=== PATIENT | male | born 1985 | race Caucasian/White ===

== ENCOUNTER 2017-09-10 15:13 | Emergency (ER) | payer SELFPAY ==
[2017-09-10] MEDS ORDERED: TORAdol 30 mg Injection IV ONE (16:17)
[2017-09-10] MEDS ORDERED: ROCEPHIN 1 Gm-D5w 50 ml Bag** 1 G/50 ML IVPB IV STA (16:17)
[2017-09-10] MEDS ORDERED: Vistaril 50 MG/ML IM ONE (16:20)
[2017-09-10] MEDS ORDERED: ROCEPHIN 1 Gm-D5w 50 ml Bag** 1 G/50 ML IVPB IV ONE (16:21)
[2017-09-10] MEDS ORDERED: TORAdol 30 mg Injection ONE (16:21)
[2017-09-10 16:22] LABS: Hematocrit 50.3 % (42-50); Hemoglobin 18.1 gm/dl (12.5-18.0); Mean Cell Volume 85.7 fl (78-100); Mean Corpuscular Hemoglobin 30.8 pg (26-32); Mean Platelet Volume 9.2 fl (6-9.5); Platelet Count 311 K/mm3 (150-450); Red Blood Count 5.87 M/mm3 (4.1-5.6); Red Cell Distribution Width 13.7 % (11.5-14.0); White Blood Count 15.7 K/mm3 (4.0-10.5)
[2017-09-10] MEDS ORDERED: Hydromorphone 1 mg/ml Ampule IV ONE (16:25)
[2017-09-10 16:27] LABS: BAND 1 % (0.0-2.0); Eosinophil 1 % (0.00-3.0); Lymphocytes 40 % (24-44); Monocyte 6 % (0.0-12.0); Neutrophils 52 % (36.-66.); Platelet Estimate NORMAL (NORMAL); Total Cells Counted 100
[2017-09-10 16:27] LABS: ANION GAP 15.9 MEQ/L (5-15); BLOOD UREA NITROGEN 16 mg/dL (9-20); CHLORIDE 105 mmol/L (98-107); Calcium 9.7 mg/dL (8.4-10.2); Carbon Dioxide 27 mmol/L (22-30); Creatinine 1 0.87 mg/dL (0.66-1.25); Glucose 94 mg/dL (74-106); Potassium 3.7 mmol/L (3.5-5.1); SODIUM 144 mmol/L (137-145)
[2017-09-10] MEDS ORDERED: DILAUDID 2 MG INJECTION ONE (16:30)
--- NOTE | 2017-09-10 17:27 | ERPHSYRPT ---
- History of Present Illness Time Seen by Provider: 09/10/17 16:08 Source: patient Patient Subjective Stated Complaint: pt reprots feeling of extreme pressure to left eye-clear drainage beginning this am-pressure and pain to left ear-states that this has happened twice before and he ended up having surgery to save his eye Triage Nursing Assessment: pt pink warm and dry-clear drainage noted-pupils reactive-pt anxious upon arrival to ed-no signs of confusion noted Physician History: CC: left facial pain Hx: 31 y/o patient with hx of prior blow out fx left orbit with subsequent infection behind his eye requiring drng procedure remotely. He has chronic left eye drng at times. This week has increased left facial pain. He has severe pain in left face. No fever. He has some sore throat and some nasal drng. No fever or chills. Left ear hurts and he has ear pressure and can not hear normally out of the left ear. Severity: severe ENT Location: facial (left) Allergies/Adverse Reactions: No Known Drug Allergies Allergy (Unverified 09/10/17 15:52) Hx Tetanus, Diphtheria Vaccination/Date Given: No Hx Influenza Vaccination/Date Given: No Hx Pneumococcal Vaccination/Date Given: No Immunizations Up to Date: Yes - Review of Systems Constitutional: No Fever, No Chills Eyes: Discharge (off andon left eye), No Double Vision Ears, Nose, & Throat: Ear Pain, Hearing Changes, Nose Congestion, Sinus Drainage , Throat Pain, No Ear Discharge Respiratory: No Cough, No Dyspnea Cardiac: No Chest Pain Abdominal/Gastrointestinal: No Abdominal Pain, No Nausea, No Vomiting Skin: No Rash Neurological: Headache All Other Systems: Reviewed and Negative - Past Medical History Pertinent Past Medical History: Yes Other Medical History: left eye problems - Past Surgical History Past Surgical History: Yes Gastrointestinal: Appendectomy, Other - Social History Smoking Status: Never smoker Drug Use: none Patient Lives Alone: No - Nursing Vital Signs Nursing Vital Signs: Initial Vital Signs Temperature 98.7 F 09/10/17 15:38 Pulse Rate 77 09/10/17 15:38 Respiratory Rate 20 09/10/17 15:38 Blood Pressure 166/99 09/10/17 15:38 O2 Sat by Pulse Oximetry 96 09/10/17 15:38 Pain Scale Pain Intensity 8 - Physical Exam General Appearance: alert Eye Exam: bilateral eye: PERRL, EOMI, other (no conjuncitval injectin or drng) Ear Exam: right ear: TM normal (left TM has red fullness and infection. The canal is red and tender as well.) Nasal Exam: normal inspection Throat Exam: moist mucus membranes, No pharynx swelling, No tonsillar exudate ( but red throat present) Neck Exam: normal inspection, non-tender, supple, No meningismus Cardiovascular/Respiratory Exam: normal breath sounds, regular rate/rhythm Abdominal Exam: non-tender, soft Neurologic Exam: alert, oriented x 3, cooperative, visualization developer II-XII nml as tested, sensation nml, No motor deficits Skin Exam: warm, dry, other (no facial cellulitis. There is midface left maxiallary tenderness.), No rash SpO2 Interpretation: normal SpO2: 97 Oxygen Delivery: Room Air - Course Nursing assessment & vital signs reviewed: Yes Ordered Tests: Active Orders 24 hr Category Date Time Status FACIAL BONES WO CONTRAST [CT] Stat Exams 09/10/17 16:17 Taken HEAD WITHOUT CONTRAST [CT] Stat Exams 09/10/17 16:17 Taken BMP Stat Lab 09/10/17 16:15 Completed CBC W DIFF Stat Lab 09/10/17 15:45 Completed Manual Differential NC Stat Lab 09/10/17 15:45 Completed Medication Summary Discontinued Medications Generic Name Dose Route Start Last Admin Trade Name Michael PRN Reason Stop Dose Admin Hydromorphone HCl 1 mg 09/10/17 16:25 09/10/17 16:59 Hydromorphone 1 Mg/Ml Ampule IV 09/10/17 16:26 1 mg STAT ONE Administration Hydromorphone HCl Confirm 09/10/17 16:30 Dilaudid 2 Mg Injection Administered 09/10/17 16:31 Dose 2 mg .ROUTE .STK-MED ONE Hydroxyzine HCl 50 mg 09/10/17 16:20 09/10/17 16:26 Vistaril 50 Mg/Ml IM 09/10/17 16:21 Not Given STAT ONE Ceftriaxone Sodium/Dextrose 1 g in 50 mls @ 100 mls/hr 09/10/17 16:17 16:59 Rocephin 1 Gm-D5w 50 Ml Bag IV 09/10/17 16:46 100 mls/hr STAT STA Administration Ceftriaxone Sodium/Dextrose Confirm 09/10/17 16:21 Rocephin 1 Gm-D5w 50 Ml Bag Administered 09/10/17 16:22 Dose 1 g in 50 mls @ ud IV .STK-MED ONE Ketorolac Tromethamine 30 mg 09/10/17 16:17 09/10/17 16:59 Toradol 30 Mg Injection IV 09/10/17 16:18 30 mg STAT ONE Administration Ketorolac Tromethamine Confirm 09/10/17 16:21 Toradol 30 Mg Injection Administered 09/10/17 16:22 Dose 30 mg .ROUTE .STK-MED ONE Lab/Rad Data: Laboratory Result Diagrams 09/10/17 15:45 09/10/17 16:15 Laboratory Results 09/10/17 09/10/17 Range/Units 16:15 15:45 WBC 15.7 H (4.0-10.5) K/mm3 RBC 5.87 H (4.1-5.6) M/mm3 Hgb 18.1 H (12.5-18.0) gm/dl Hct 50.3 H (42-50) % MCV 85.7 (78-100) fl MCH 30.8 (26-32) pg MCHC 36.0 (32-36) g/dl RDW 13.7 (11.5-14.0) % Plt Count 311 (150-450) K/mm3 MPV 9.2 (6-9.5) fl Segmented Neutrophils 52 (36.-66.) % Band Neutrophils 1 (0.0-2.0) % Lymphocytes (Manual) 40 (24-44) % Monocytes (Manual) 6 (0.0-12.0) % Eosinophils (Manual) 1 (0.00-3.0) % Differential Comment NORMAL Platelet Estimate NORMAL (NORMAL) Sodium 144 (137-145) mmol/L Potassium 3.7 (3.5-5.1) mmol/L Chloride 105 (98-107) mmol/L Carbon Dioxide 27 (22-30) mmol/L Anion Gap 15.9 H (5-15) MEQ/L BUN 16 (9-20) mg/dL Creatinine 0.87 (0.66-1.25) mg/dL Estimated GFR > 60 ML/MIN Glucose 94 (74-106) mg/dL Calcium 9.7 (8.4-10.2) mg/dL - Progress Progress Note: 09/10/17 17:30 He has clinical left OM and sinusitis. He demanded CT scan. It confirms. Pain meds given. Rocephin given. Will release with instr. Counseled pt/family regarding: lab results, diagnosis, need for follow-up, rad results - Departure Time of Disposition: 17:31 Departure Disposition: Home Clinical Impression: Acute sinusitis, Left otitis media Condition: Fair Critical Care Time: No Referrals: DOCTOR,NO FAMILY [Primary Care Provider] - Instructions: Sinusitis, Adult (DC) Additional Instructions: Rx omnicef. Rx norco. Follow up with a family doctor next week. No driving or operating machinery today or while taking norco. Prescriptions: Hydrocodone Bit/Acetaminophen [[place] 5-325 Tablet] 1 each PO Q6H PRN PRN #10 tablet MDD 4 PRN Reason: Pain Ibuprofen 600 mg PO Q6H PRN PRN #24 tablet PRN Reason: Pain Cefdinir [Omnicef 300 mg] 300 mg PO BID #28 capsule
[2017-09-10 17:52] VITALS: BP 116/74; PULSE 84; O2SAT 96
--- NOTE | 2017-09-10 21:12 | XRAY ---
Indication: Headache and left facial/head pain. Postnasal drip. Multiple contiguous axial images obtained through the head without contrast. Comparison: None Normal-appearing brain parenchyma, ventricles, and bony calvarium. There is near complete opacification of all the paranasal sinuses with sparing of the right frontal sinus. Mastoid air cells are clear. Impression: No acute intracranial abnormalities. Pansinusitis. Comment: Preliminary interpretation was made by [facility]. No discrepancy. CTDI 59.47
--- NOTE | 2017-09-10 21:16 | XRAY ---
Indication: Headache and left facial/head pain. Postnasal drip. Multiple contiguous axial images obtained through the facial bones. Sagittal and coronal reformatted images obtained. Comparison: September 26, 2008. There is progressive worsening paranasal sinus disease with now near complete opacification of all the paranasal sinuses with sparing of the right frontal sinus. Small fluid leveling in both maxillary and right sphenoid sinuses. No acute fracture, suspicious bone lesions, or osseous structure processes. Orbits including roof, osei, and floors intact. Incidental bilateral upper and lower teeth dental caries. Remaining visualized noncontrasted soft tissues unremarkable. CT head reported separately. Impression: 1. Worsening pansinusitis. 2. Incidental multiple upper and lower teeth dental caries. Comment: Preliminary interpretation was made by [facility]. No discrepancy. CTDI 59.47
== END 2017-09-10 17:52 | disposition home or self-care (01) ==
LOC: ED 15:13
DX: J01.90 Acute sinusitis, unspecified (principal); H66.92 Otitis media, unspecified, left ear; R51 Headache
CPT/HCPCS: 36415; 70450; 70486; 80048; 85025; 96374; 96375; 99284; J0696; J1170; J1885; J3410

== ENCOUNTER 2020-07-03 04:51 | Emergency (ER) | payer OTHER ==
[2020-07-03 05:07] VITALS: O2SAT 98
[2020-07-03] MEDS ORDERED: TORAdol 30 mg Injection IM ONE (05:21)
[2020-07-03] MEDS ORDERED: Augmentin 875-125 Tablet PO ONE (05:21)
[2020-07-03] MEDS ORDERED: Augmentin 875-125 Tablet ONE (05:23)
[2020-07-03] MEDS ORDERED: TORAdol 30 mg Injection ONE (05:23)
--- NOTE | 2020-07-03 05:26 | ERPHSYRPT ---
- History of Present Illness Time Seen by Provider: 07/03/20 05:16 Patient Subjective Stated Complaint: pt states he has been having pain in his lt lower jaw radiating into his neck for the past 2 weeks. states he thinks there are 2 teeth that might be bad Triage Nursing Assessment: pt alert and oriented, answers questions approp. pt ambulatory with steady gait noted. respirations nonlabored with lungs cta. throat reddened, with otc white putty material packed onto tooth in lt lower . pt reports no difficulty breathing. pain with swallowing Timing/Duration: gradual onset, weeks (2) Severity: severe ENT Location: mouth, facial, dental Prearrival Treatment: over the counter meds Associated Symptoms: facial pain/swelling, jaw pain, swollen glands, tooth pain Allergies/Adverse Reactions: No Known Drug Allergies Allergy (Verified 07/03/20 05:08) Hx Tetanus, Diphtheria Vaccination/Date Given: No Hx Influenza Vaccination/Date Given: No Hx Pneumococcal Vaccination/Date Given: No Immunizations Up to Date: No Travel Risk - International Travel Have you traveled outside of the country in past 3 weeks: No - Coronavirus Screening Are you exhibiting any of the following symptoms?: No Close contact with a COVID-19 positive Pt in past 14-21 Days: No - Review of Systems Constitutional: No Symptoms Eyes: No Symptoms Ears, Nose, & Throat: Loose Teeth, Painful Swallowing Respiratory: No Symptoms Cardiac: No Symptoms Abdominal/Gastrointestinal: No Symptoms Genitourinary Symptoms: No Symptoms Musculoskeletal: No Symptoms - Past Medical History Pertinent Past Medical History: Yes Other Medical History: left eye reconstructive surgery - Past Surgical History Past Surgical History: Yes Gastrointestinal: Appendectomy, Other - Social History Smoking Status: Current every day smoker How long have you smoked: 7yrs Exposure to second hand smoke: No Drug Use: none Patient Lives Alone: No - Nursing Vital Signs Nursing Vital Signs: Initial Vital Signs Temperature 98.1 F 07/03/20 04:56 Pulse Rate 72 07/03/20 04:56 Respiratory Rate 16 07/03/20 04:56 Blood Pressure 149/106 07/03/20 04:56 O2 Sat by Pulse Oximetry 98 07/03/20 04:56 Pain Scale Pain Intensity 10 - Physical Exam General Appearance: no apparent distress, alert Eye Exam: bilateral eye: normal inspection, PERRL, EOMI Ear Exam: bilateral ear: auricle normal, canal normal, TM normal Nasal Exam: normal inspection Throat Exam: normal, dental tenderness (Left lower premolar and molar) Neck Exam: normal inspection, non-tender, supple, full range of motion Cardiovascular/Respiratory Exam: chest non-tender, normal breath sounds, regular rate/rhythm Neurologic Exam: alert, oriented x 3, cooperative, 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 Follow-up with primary dental care for reevaluation. Return to ER for any worsening Prescriptions: Ibuprofen 600 mg PO Q6HPRN PRN 10 Days #20 tablet PRN Reason: Pain Amoxicillin/Potassium Clav [Augmentin 875-125 Tablet] 875 mg PO BID 10 Days #19 tablet
[2020-07-03 05:53] VITALS: BP 128/85; PULSE 71
== END 2020-07-03 05:43 | disposition home or self-care (01) ==
LOC: ED 04:51
DX: K04.7 Periapical abscess without sinus (principal)
CPT/HCPCS: 96372; 99283; J1885; A9270-GY

== ENCOUNTER 2022-01-12 15:15 | Emergency (ER) | payer BC ==
--- NOTE | 2022-01-12 15:16 | ERPHSYRPT ---
- History of Present Illness Time Seen by Provider: 01/12/22 15:15 Source: patient Exam Limitations: no limitations Physician History: This is a 36-year-old white male patient who complains of headache, myalgias and arthralgias. Patient stated the worst headache he is ever had. He does not have fever or neck pain. Patient was at work today and had the symptoms. He has no recent exposure to individuals were tested positive for COVID-19 infection or other flu illnesses. He feels nauseated but has not had any vomiting or diarrhea. He has no abdominal pain. He has no chest pain and is not short of breath. Timing/Duration: today Cough Quality/Degree: no cough Possible Cause: no prior episodes Associated Symptoms: headache, muscle aches Allergies/Adverse Reactions: No Known Drug Allergies Allergy (Verified 07/03/20 05:08) Hx Tetanus, Diphtheria Vaccination/Date Given: No Hx Influenza Vaccination/Date Given: No Hx Pneumococcal Vaccination/Date Given: No Travel Risk - International Travel Have you traveled outside of the country in past 3 weeks: No - Coronavirus Screening Are you exhibiting any of the following symptoms?: Yes Symptoms: Headaches/Body Aches/Fatigue - Review of Systems Constitutional: No Symptoms Eyes: No Symptoms Ears, Nose, & Throat: No Symptoms Respiratory: No Symptoms Cardiac: No Symptoms Abdominal/Gastrointestinal: Nausea, No Abdominal Pain, No Vomiting, No Diarrhea Genitourinary Symptoms: No Symptoms Musculoskeletal: Arthralgias, Myalgias Skin: No Symptoms Neurological: Headache Psychological: No Symptoms Endocrine: No Symptoms Hematologic/Lymphatic: No Symptoms Immunological/Allergic: No Symptoms All Other Systems: Reviewed and Negative - Past Medical History Pertinent Past Medical History: Yes Other Medical History: left eye reconstructive surgery - Past Surgical History Past Surgical History: Yes Gastrointestinal: Appendectomy, Other - Social History Smoking Status: Current every day smoker How long have you smoked: 7yrs Exposure to second hand smoke: No Drug Use: none Patient Lives Alone: No - Nursing Vital Signs Nursing Vital Signs: Initial Vital Signs Temperature 97.3 F 01/12/22 15:23 Pulse Rate 79 01/12/22 15:23 Respiratory Rate 16 01/12/22 15:23 Blood Pressure 132/80 01/12/22 15:23 O2 Sat by Pulse Oximetry 99 01/12/22 15:23 Pain Scale Pain Intensity 2 - Physical Exam General Appearance: no apparent distress, alert, anxiety Eye Exam: PERRL/EOMI, eyes nml inspection Ears, Nose, Throat Exam: normal ENT inspection, moist mucous membranes Neck Exam: normal inspection, non-tender, supple, full range of motion Respiratory Exam: normal breath sounds, lungs clear, No chest tenderness, No respiratory distress Cardiovascular Exam: regular rate/rhythm, normal heart sounds, normal peripheral pulses Gastrointestinal/Abdomen Exam: soft, normal bowel sounds, No tenderness Rectal Exam: not done Back Exam: normal inspection, normal range of motion, No CVA tenderness, No vertebral tenderness Extremity Exam: normal inspection, normal range of motion, pelvis stable Neurologic Exam: alert, oriented x 3, cooperative, 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, normal mood/affect, nml cerebellar function, nml station & gait, sensation nml Skin Exam: normal color, warm, dry Lymphatic Exam: No adenopathy SpO2 Interpretation: normal O2 Delivery: Room Air - Course Nursing assessment & vital signs reviewed: Yes Ordered Tests: Active Orders 24 hr Category Date Time Status Planning Consultant STAT Care 01/12/22 16:13 Active IV Insertion STAT Care 01/12/22 16:12 Active Pulse Oximetry (ED) STAT Care 01/12/22 16:12 Active HEAD WITHOUT CONTRAST [CT] Stat Exams 01/12/22 16:13 Taken BLOOD CULTURE Stat Lab 01/12/22 16:33 Received CBC W DIFF Stat Lab 01/12/22 16:25 Completed CMP Stat Lab 01/12/22 16:25 Completed [place] Screen Stat Lab 01/12/22 16:25 Completed UA W/RFX CULTURE Stat Lab 01/12/22 18:48 Completed Medication Summary Discontinued Medications Generic Name Dose Route Start Last Admin Trade Name Michael PRN Reason Stop Dose Admin Hydrocodone Bitart/Acetaminophen 10 ml 01/12/22 15:36 01/12/22 15:40 Hydrocodone/Acetaminophen 5 Ml Udcup PO 01/12/22 15:37 10 ml STAT STA Administration Hydrocodone Bitart/Acetaminophen Confirm 01/12/22 15:40 Hydrocodone/Acetaminophen 5 Ml Udcup Administered 01/12/22 15:41 Dose 10 ml .ROUTE .STK-MED ONE Hydromorphone HCl 0.5 mg 01/12/22 17:44 01/12/22 18:14 Hydromorphone 1 Mg/1ml Inj 1 Mg/Ml Syringe IV 01/12/22 17:45 0.5 mg STAT ONE Administration Hydromorphone HCl Confirm 01/12/22 18:12 Hydromorphone 1 Mg/1ml Inj 1 Mg/Ml Syringe Administered 01/12/22 18:13 Dose 1 mg .ROUTE .STK-MED ONE Sodium Chloride 1,000 mls @ 999 mls/hr 01/12/22 16:12 01/12/22 17:22 Sodium Chloride 0.9% 1000 Ml IV 01/12/22 17:12 Infused .Q1H1M STA Infusion Sodium Chloride Confirm 01/12/22 16:18 Sodium Chloride 0.9% 1000 Ml Administered 01/12/22 16:19 Dose 1,000 mls @ ud .ROUTE .STK-MED ONE Sodium Chloride 1,000 mls @ 999 mls/hr 01/12/22 17:44 01/12/22 19:21 Sodium Chloride 0.9% 1000 Ml IV 01/12/22 18:44 Infused .Q1H1M STA Infusion Sodium Chloride Confirm 01/12/22 18:12 Sodium Chloride 0.9% 1000 Ml Administered 01/12/22 18:13 Dose 1,000 mls @ ud .ROUTE .STK-MED ONE Ondansetron HCl 4 mg 01/12/22 16:12 01/12/22 16:21 Ondansetron Hcl 4 Mg/2 Ml Vial IV 01/12/22 16:13 4 mg STAT STA Administration Ondansetron HCl Confirm 01/12/22 16:18 Ondansetron Hcl 4 Mg/2 Ml Vial Administered 01/12/22 16:19 Dose 4 mg .ROUTE .STK-MED ONE Lab/Rad Data: Laboratory Result Diagrams 01/12/22 16:25 01/12/22 16:25 Laboratory Results 01/12/22 01/12/22 01/12/22 Range/Units 18:48 16:33 16:25 WBC (4.0-10.5) x10^3/uL RBC (4.1-5.6) x10^6/uL Hgb (12.5-18.0) g/dL Hct (42-50) % MCV (78-100) fL MCH (26-32) pg MCHC (32-36) g/dL RDW (11.5-14.0) % Plt Count (150-450) x10^3/uL MPV (7.5-11.0) fL Gran % (36.0-66.0) % Immature Gran % (Auto) (0.00-0.4) % Nucleat RBC Rel Count (0.00-0.1) % Eos # (Auto) (0-0.5) x10^3/uL Immature Gran # (Auto) (0.00-0.03) x10^3u/L Absolute Lymphs (auto) (1.0-4.6) x10^3/uL Absolute Monos (auto) (0.0-1.3) x10^3/uL Absolute Nucleated RBC (0.00-0.01) x10^3u/L Lymphocytes % (24.0-44.0) % Monocytes % (0.0-12.0) % Eosinophils % (0.00-5.0) % Basophils % (0.0-0.4) % Absolute Granulocytes (1.4-6.9) x10^3/uL Basophils # (0-0.4) x10^3/uL Sodium (137-145) mmol/L Potassium (3.5-5.1) mmol/L Chloride (98-107) mmol/L Carbon Dioxide (22-30) mmol/L Anion Gap (5-15) MEQ/L BUN (9-20) mg/dL Creatinine (0.66-1.25) mg/dL Estimated GFR ML/MIN Glucose (74-106) mg/dL Calcium (8.4-10.2) mg/dL Total Bilirubin (0.2-1.3) mg/dL AST (17-59) U/L ALT (0-50) U/L Alkaline Phosphatase (38-126) U/L Serum Total Protein (6.3-8.2) g/dL Albumin (3.5-5.0) g/dL Urinalys Dipstick Clnc MAIN LAB Urine Color YELLOW (YELLOW) Urine Appearance CLEAR (CLEAR) Urine pH 6.0 (5-6) Ur Specific [place] >=1.030 (1.005-1.025) POC Urine Protein Conf 30 (Negative) Urine Ketones SMALL-15 (NEGATIVE) Urine Nitrite NEGATIVE (NEGATIVE) Urine Bilirubin SMALL (NEGATIVE) Urine Urobilinogen 0.2 (0-1) mg/dL Urine Leukocytes NEGATIVE (NEGATIVE) Urine WBC (Auto) NONE SEEN (0-5) /HPF Urine RBC (Auto) NONE SEEN (0-2) /HPF U Epithel Cells (Auto) NONE (FEW) /HPF Urine Bacteria (Auto) NONE (NEGATIVE) /HPF Urine RBC NEGATIVE (0-5) Jayden/ul Ur Culture Indicated? NO Urine Glucose NEGATIVE (NEGATIVE) mg/dL Monoscreen POSITIVE (Negative) Influenza Type A Ag (NEGATIVE) Influenza Type B Ag (NEGATIVE) RSV (PCR) (Negative) SARS-CoV-2 (PCR) (NEGATIVE) Group A Strep Antibody NOT DETECTED (NEGATIVE) Slides for Path Review 01/12/22 01/12/22 01/12/22 Range/Units 16:25 16:25 16:04 WBC 5.8 (4.0-10.5) x10^3/uL RBC 4.92 (4.1-5.6) x10^6/uL Hgb 15.4 (12.5-18.0) g/dL Hct 43.3 (42-50) % MCV 88.0 (78-100) fL MCH 31.3 (26-32) pg MCHC 35.6 (32-36) g/dL RDW 12.2 (11.5-14.0) % Plt Count 210 (150-450) x10^3/uL MPV 9.1 (7.5-11.0) fL Gran % 80.9 H (36.0-66.0) % Immature Gran % (Auto) 0.5 H (0.00-0.4) % Nucleat RBC Rel Count 0.0 (0.00-0.1) % Eos # (Auto) 0.01 (0-0.5) x10^3/uL Immature Gran # (Auto) 0.03 (0.00-0.03) x10^3u/L Absolute Lymphs (auto) 0.24 L (1.0-4.6) x10^3/uL Absolute Monos (auto) 0.78 (0.0-1.3) x10^3/uL Absolute Nucleated RBC 0.00 (0.00-0.01) x10^3u/L Lymphocytes % 4.1 L (24.0-44.0) % Monocytes % 13.4 H (0.0-12.0) % Eosinophils % 0.2 (0.00-5.0) % Basophils % 0.9 (0.0-0.4) % Absolute Granulocytes 4.69 (1.4-6.9) x10^3/uL Basophils # 0.05 (0-0.4) x10^3/uL Sodium 137 (137-145) mmol/L Potassium 3.4 L (3.5-5.1) mmol/L Chloride 104 (98-107) mmol/L Carbon Dioxide 25 (22-30) mmol/L Anion Gap 11.4 (5-15) MEQ/L BUN 12 (9-20) mg/dL Creatinine 0.85 (0.66-1.25) mg/dL Estimated GFR > 60.0 ML/MIN Glucose 105 (74-106) mg/dL Calcium 9.3 (8.4-10.2) mg/dL Total Bilirubin 0.40 (0.2-1.3) mg/dL AST 25 (17-59) U/L ALT 20 (0-50) U/L Alkaline Phosphatase 63 (38-126) U/L Serum Total Protein 7.8 (6.3-8.2) g/dL Albumin 4.3 (3.5-5.0) g/dL Urinalys Dipstick Clnc Urine Color (YELLOW) Urine Appearance (CLEAR) Urine pH (5-6) Ur Specific [place] (1.005-1.025) POC Urine Protein Conf (Negative) Urine Ketones (NEGATIVE) Urine Nitrite (NEGATIVE) Urine Bilirubin (NEGATIVE) Urine Urobilinogen (0-1) mg/dL Urine Leukocytes (NEGATIVE) Urine WBC (Auto) (0-5) /HPF Urine RBC (Auto) (0-2) /HPF U Epithel Cells (Auto) (FEW) /HPF Urine Bacteria (Auto) (NEGATIVE) /HPF Urine RBC (0-5) Jayden/ul Ur Culture Indicated? Urine Glucose (NEGATIVE) mg/dL Monoscreen (Negative) Influenza Type A Ag NEGATIVE (NEGATIVE) Influenza Type B Ag NEGATIVE (NEGATIVE) RSV (PCR) NEGATIVE (Negative) SARS-CoV-2 (PCR) POSITIVE A (NEGATIVE) Group A Strep Antibody (NEGATIVE) Slides for Path Review YES - Progress Progress: improved, re-examined Air Movement: good Progress Note: 01/12/22 19:02 Patient states that he is now getting thirsty and hungry. He is feeling much better. 01/12/22 19:23 CAT scan of the head without contrast shows some mild paranasal sinus disease bu t no acute intracranial abnormality. Blood Culture(s) Obtained: Yes Counseled pt/family regarding: lab results, diagnosis, need for follow-up, rad results - Departure Departure Disposition: Home Clinical Impression: Mononucleosis, COVID-19 virus infection Condition: Stable Critical Care Time: No Referrals: DOCTOR,NO FAMILY [NON-STAFF PHY W/O PRIVILEGES] - Follow up/PCP as directed Additional Instructions: Drink plenty of fluids. Add ibuprofen 600 mg orally 3 times a day with food for the next 5 days. Take your medication as prescribed. Quarantine yourself per your employer specifications. Prescriptions: Ondansetron ODT 4 MG [Zofran Odt 4 mg] 4 mg PO Q6H PRN PRN #10 tablet PRN Reason: Vomiting Hydrocodone/Acetaminophen [Hydrocodone-Acetamn 7.5-325/15] 10 ml PO Q8H PRN PRN #120 ml MDD 30 ml PRN Reason: Cough
[2022-01-12] MEDS ORDERED: HYDROCODONE-ACETAMIN 2.5-108/5 ML SOLUTION PO STA (15:36)
[2022-01-12] MEDS ORDERED: HYDROCODONE-ACETAMIN 2.5-108/5 ML SOLUTION ONE (15:40)
[2022-01-12] MEDS ORDERED: Sodium Chloride 0.9% 1000 ML 1,000 ML IV STA ×2 (16:12→17:44)
[2022-01-12] MEDS ORDERED: Zofran 4 MG/2 ML VIAL IV STA (16:12)
[2022-01-12] MEDS ORDERED: Zofran 4 MG/2 ML VIAL ONE (16:18)
[2022-01-12] MEDS ORDERED: Sodium Chloride 0.9% 1000 ML 1,000 ML ONE ×2 (16:18→18:12)
[2022-01-12 16:44] LABS: Absolute Neutrophil Ct (ANC) 4.69 x10^3/uL (1.4-6.9); Basophil (Absolute #) 0.05 x10^3/uL (0-0.4); Eosinophil % 0.2 % (0.00-5.0); Eosinophil (Absolute #) 0.01 x10^3/uL (0-0.5); Hematocrit 43.3 % (42-50); Hemoglobin 15.4 g/dL (12.5-18.0); Lymphocyte (Absolute #) 0.24 x10^3/uL (1.0-4.6); Lymphocytes % 4.1 % (24.0-44.0); Mean Corpuscular Hemoglobin 31.3 pg (26-32); Mean Corpuscular Hgb Concent. 35.6 g/dL (32-36); Mean Platelet Volume 9.1 fL (7.5-11.0); Monocyte (Absolute #) 0.78 x10^3/uL (0.0-1.3); Monocytes % 13.4 % (0.0-12.0); Neutrophil % 80.9 % (36.0-66.0); Platelet Count 210 x10^3/uL (150-450); Red Blood Count 4.92 x10^6/uL (4.1-5.6); Red Cell Distribution Width 12.2 % (11.5-14.0); White Blood Count 5.8 x10^3/uL (4.0-10.5)
[2022-01-12 16:46] LABS: INFLUENZA A NEGATIVE (NEGATIVE); INFLUENZA B NEGATIVE (NEGATIVE); RESPIRATORY SYNCTIAL VIRUS NEGATIVE (Negative)
[2022-01-12 16:52] LABS: ALBUMIN 4.3 g/dL (3.5-5.0); ALKALINE PHOSPHATASE 63 U/L (38-126); ANION GAP 11.4 MEQ/L (5-15); BLOOD UREA NITROGEN 12 mg/dL (9-20); CHLORIDE 104 mmol/L (98-107); Calcium 9.3 mg/dL (8.4-10.2); Carbon Dioxide 25 mmol/L (22-30); Creatinine 1 0.85 mg/dL (0.66-1.25); EST GLOMERULAR FILTRATION RATE > 60.0 ML/MIN; Glucose 105 mg/dL (74-106); Potassium 3.4 mmol/L (3.5-5.1); SGOT/AST 25 U/L (17-59); SGPT/ALT 20 U/L (0-50); SODIUM 137 mmol/L (137-145); Total Protein 7.8 g/dL (6.3-8.2)
[2022-01-12 16:52] LABS: SARS-CoV-2 Xpert Express POSITIVE (NEGATIVE)
[2022-01-12 17:17] LABS: Slide Review 1 YES
[2022-01-12] MEDS ORDERED: Hydromorphone 1 mg/ml Injection IV ONE (17:44)
[2022-01-12] MEDS ORDERED: Hydromorphone 1 mg/ml Injection ONE (18:12)
[2022-01-12 18:49] LABS: Appearance CLEAR (CLEAR); Bilirubin SMALL (NEGATIVE); Glucose NEGATIVE (NEGATIVE)
[2022-01-12 18:50] LABS: Ketones SMALL-15 (NEGATIVE); RBC NEGATIVE Ery/ul (0-5); Specific Gravity >=1.030 (1.005-1.025)
[2022-01-12 18:51] LABS: Dipstick done @ ? MAIN LAB; Nitrite NEGATIVE (NEGATIVE); Protein,Urine Dip 30 (Negative); Urobilinogen 0.2 mg/dL (0-1)
[2022-01-12 18:52] LABS: RBC NONE SEEN /HPF (0-2); WBC NONE SEEN /HPF (0-5)
[2022-01-12 18:53] LABS: Urine Cultured Indicated? NO
[2022-01-12 19:03] VITALS: BP 113/75; PULSE 68
[2022-01-12 19:33] VITALS: O2SAT 97
--- NOTE | 2022-01-13 08:36 | XRAY ---
Indication: Severe headache. No known injury. Multiple contiguous axial images obtained through the head without contrast. Comparison: September 10, 2017 Normal appearing brain parenchyma, ventricles, and bony calvarium. Mild mucosal thickening both ethmoid and lesser degree both maxillary/sphenoid sinuses. Mastoid air cells clear. Impression: Continued normal CT head without contrast exam. Mild paranasal sinus disease.
== END 2022-01-12 19:35 | disposition home or self-care (01) ==
LOC: ED 15:15
DX: U07.1 COVID-19 (principal); B27.90 Infectious mononucleosis, unspecified without complication; R51.9 Headache, unspecified; M79.10 Myalgia, unspecified site; R11.0 Nausea; Z72.0 Tobacco use; Z79.891 Long term (current) use of opiate analgesic
CPT/HCPCS: 0241U; 36000; 36415; 70450; 80053; 81015; 85025; 86308; 87040; 87651; 94760; 96360; 96374; 96375; 99284; J1170; J2405; A9270-GY

== ENCOUNTER 2022-03-03 09:23 | Emergency (ER) | payer BC ==
--- NOTE | 2022-03-03 09:27 | ERPHSYRPT ---
- History of Present Illness Time Seen by Provider: 03/03/22 09:27 Source: patient Exam Limitations: no limitations Physician History: This is a 36-year-old white male patient of Dr. Magaña who presents with lumbar level back pain which shoots down his right buttock and posterior leg. Patient had similar symptoms approximately 2 weeks ago and was seen in outpatient clinic. He states that they did not give him any type of medication and was told to take Tylenol and ibuprofen for pain control. Approximately 3 days ago his symptoms recurred. Patient has not suffered any acute fall or trauma to the area. He has no urinary tract infection symptoms. Patient has no difficulty urinating. He has no difficulty having bowel movements. He has no numbness in his feet. Patient drove himself to the hospital Timing/Duration: day(s) (3) Method of Injury: other (No injury) Quality: sharp, stabbing Back Pain Location: paraspinous muscles Back Pain Radiation: buttocks, upper legs Associated Symptoms: lower back pain, No urinary incontinence, No loss of bowel control, No numbness in legs/feet Previous symptoms: same symptoms as today Allergies/Adverse Reactions: No Known Drug Allergies Allergy (Verified 07/03/20 05:08) Hx Tetanus, Diphtheria Vaccination/Date Given: No Hx Influenza Vaccination/Date Given: No Hx Pneumococcal Vaccination/Date Given: No Travel Risk - International Travel Have you traveled outside of the country in past 3 weeks: No - Coronavirus Screening Are you exhibiting any of the following symptoms?: No Close contact with a COVID-19 positive Pt in past 14-21 Days: No - Vaccine Status Have you recieved a Covid-19 vaccination: No - Review of Systems Constitutional: No Symptoms Eyes: No Symptoms Ears, Nose, & Throat: No Symptoms Respiratory: No Symptoms Cardiac: No Symptoms Abdominal/Gastrointestinal: No Symptoms Genitourinary Symptoms: No Symptoms Musculoskeletal: Back Pain Skin: No Symptoms Neurological: No Symptoms Psychological: No Symptoms Endocrine: No Symptoms Hematologic/Lymphatic: No Symptoms Immunological/Allergic: No Symptoms All Other Systems: Reviewed and Negative - Past Medical History Pertinent Past Medical History: Yes Neurological History: No Pertinent History ENT History: No Pertinent History Cardiac History: No Pertinent History Respiratory History: No Pertinent History Endocrine Medical History: No Pertinent History Musculoskeletal History: No Pertinent History History: No Pertinent History Psycho-Social History: No Pertinent History Male Reproductive Disorders: No Pertinent History Other Medical History: left eye reconstructive surgery - Past Surgical History Past Surgical History: Yes Gastrointestinal: Appendectomy, Other - Social History Smoking Status: Current every day smoker How long have you smoked: 7yrs Exposure to second hand smoke: No Drug Use: none Patient Lives Alone: No - Nursing Vital Signs Nursing Vital Signs: Initial Vital Signs Temperature 98.3 F 03/03/22 09:28 Pulse Rate 65 03/03/22 09:28 Respiratory Rate 20 03/03/22 09:28 Blood Pressure 145/92 03/03/22 09:28 O2 Sat by Pulse Oximetry 99 03/03/22 09:28 Pain Scale Pain Intensity [Right Lower 8 Back] Pain Intensity 8 - Physical Exam General Appearance: no apparent distress, alert, anxiety Eye Exam: PERRL/EOMI, eyes nml inspection Ears, Nose, Throat Exam: normal ENT inspection, moist mucous membranes Neck Exam: normal inspection, non-tender, supple, full range of motion Respiratory Exam: airway intact, No chest tenderness, No respiratory distress Gastrointestinal Exam: No tenderness Rectal Exam: not done Back Exam: normal inspection, normal range of motion, muscle spasm (Right lower lumbar level) Extremity Exam: normal inspection, normal range of motion, pelvis stable Neurologic Exam: alert, oriented x 3, cooperative, 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 Call Dr. Magaña's office today to make arranges for follow-up appointment for further evaluation and management. Prescriptions: Prednisone 10 mg [Deltasone 10 mg] 10 mg PO TID #12 tablet Orphenadrine Citrate 100 mg [Norflex 100 MG Tablet] 100 mg PO BID #10 tab
[2022-03-03 10:42] VITALS: BP 138/40; PULSE 64; O2SAT 98
== END 2022-03-03 10:46 | disposition home or self-care (01) ==
LOC: ED 09:23
DX: M54.41 Lumbago with sciatica, right side (principal); Z72.0 Tobacco use; Z79.52 Long term (current) use of systemic steroids; Z28.310 Unvaccinated for COVID-19
CPT/HCPCS: 99281

== ENCOUNTER 2023-10-14 22:52 | Emergency (ER) | payer BC, MEDICAID ==
--- NOTE | 2023-10-14 22:54 | ERPHSYRPT ---
- History of Present Illness Time Seen by Provider: 10/14/23 22:53 Source: patient Exam Limitations: no limitations Physician History: This is a 37-year-old white male patient who was working with wood and a saw yesterday when the saw hit a nail in he felt that hit his right eye at approximate the 12 o'clock position. He did not come in yesterday when it happened but today the pain was worsening and he noticed the redness worsening as well. There is throbbing pain to the right eye. Timing/Duration: yesterday Location: right eye Severity: mild Apparent Injury: yes Associated Symptoms: redness, matting, foreign body sensation Visual Assistive Devices: None Trauma: Yes Allergies/Adverse Reactions: No Known Drug Allergies Allergy (Verified 10/14/23 22:57) Hx Tetanus, Diphtheria Vaccination/Date Given: No Hx Influenza Vaccination/Date Given: No Hx Pneumococcal Vaccination/Date Given: No Travel Risk - International Travel Have you traveled outside of the country in past 3 weeks: No - Emerging Infectious Disease Are you exhibiting symptoms associated with any current EIDs: No - Review of Systems Constitutional: No Symptoms Eyes: Eye Redness (Right I), Tearing (Right side), Foreign Body Sensation (Right side) Ears, Nose, & Throat: No Symptoms Respiratory: No Symptoms Cardiac: No Symptoms Abdominal/Gastrointestinal: No Symptoms Genitourinary Symptoms: No Symptoms Musculoskeletal: No Symptoms Skin: No Symptoms Neurological: No Symptoms Psychological: No Symptoms Endocrine: No Symptoms Hematologic/Lymphatic: No Symptoms Immunological/Allergic: No Symptoms All Other Systems: Reviewed and Negative - Past Medical History Pertinent Past Medical History: Yes Neurological History: No Pertinent History ENT History: No Pertinent History Cardiac History: No Pertinent History Respiratory History: No Pertinent History Endocrine Medical History: No Pertinent History Musculoskeletal History: No Pertinent History History: No Pertinent History Psycho-Social History: No Pertinent History Male Reproductive Disorders: No Pertinent History Other Medical History: left eye reconstructive surgery - Past Surgical History Past Surgical History: Yes Gastrointestinal: Appendectomy, Other - Social History Smoking Status: Current every day smoker How long have you smoked: 7yrs Exposure to second hand smoke: No Drug Use: none Patient Lives Alone: No - Nursing Vital Signs Nursing Vital Signs: Initial Vital Signs Temperature 97.8 F 10/14/23 22:57 Pulse Rate 84 10/14/23 22:57 Respiratory Rate 14 10/14/23 22:57 Blood Pressure 135/82 10/14/23 22:57 O2 Sat by Pulse Oximetry 97 10/14/23 22:57 Pain Scale Pain Intensity 8 - Physical Exam General Appearance: no apparent distress, alert, anxiety Eye Exam: right eye: corneal abrasion (12 o'clock position), left eye: normal inspection, bilateral eye: PERRL, EOMI Ears, Nose, Throat Exam: normal ENT inspection, moist mucous membranes Neck Exam: normal inspection, non-tender, supple, full range of motion Respiratory Exam: lungs clear, airway intact, No chest tenderness, No respiratory distress Gastrointestinal Exam: No tenderness Neurologic: alert, oriented x 3, cooperative, 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, normal mood/affect, nml cerebellar function, nml station & gait, sensation nml Skin Exam: normal color, warm, dry Lymphatic: No adenopathy SpO2 Interpretation: normal O2 Delivery: Room Air Procedures - Eye Procedure Time of Procedure: 23:35 Timeout: Performed Tetracaine Drops Administered: Yes Antibiotic Oinment/Drps Admin: right eye (Erythromycin ointment applied 1/2 inch strip) - Course Nursing assessment & vital signs reviewed: Yes Ordered Tests: Medication Summary Discontinued Medications Generic Name Dose Route Start Last Admin Trade Name Freq PRN Reason Stop Dose Admin Hydrocodone Bitart/Acetaminophen 1 tab 10/14/23 23:48 Hydrocodone/Apap 5/325 1 Tab Tablet PO 10/14/23 23:49 STAT ONE Erythromycin 1 gm 10/14/23 23:39 10/14/23 23:39 Erythromycin Base 1 Gm Tube Eye Ointment OP 10/14/23 23:40 1 gm STAT STA Administration Erythromycin Confirm 10/14/23 23:37 Erythromycin Base 1 Gm Tube Eye Ointment Administered 10/14/23 23:38 Dose 1 gm .ROUTE .STK-MED ONE Tetracaine HCl Confirm 10/14/23 23:37 Tetracaine Hcl/Pf 4 Ml Bottle Administered 10/14/23 23:38 Dose 4 ml OP .STK-MED ONE Tetracaine HCl 4 ml 10/14/23 23:40 10/14/23 23:41 Tetracaine Hcl/Pf 4 Ml Bottle OP 10/14/23 23:41 4 ml STAT STA Administration Tetrahydrozoline HCl 1 ml 10/14/23 23:38 10/14/23 23:40 Tetrahydrozoline Hcl 15 Ml Bottle Eye Drops OP 10/14/23 23:39 Not Given STAT ONE - Progress Progress: improved, pain not gone completely, re-examined Progress Note: 10/14/23 23:53 My medical decision making and the assignment of low complexity to this patient's medical issue today is based on review the patient's past medical history, review the patient's medication list, review the patient drug allergy list, history of present illness and physical findings on examination. No laboratory radiographic studies are necessary in this patient. Differential diagnosis includes corneal abrasion right eye, right eye foreign body, right eye conjunctivitis Counseled pt/family regarding: diagnosis, need for follow-up Medical Desision Making - Diagnostic Testing Diagnostic test were ordered, analyzed, and reviewed by me: No - Risk of complications The pt has a mod risk of morbidity or mortality based on: Need for prescription drug management - Departure Departure Disposition: Home Clinical Impression: Right corneal abrasion Condition: Stable Critical Care Time: No Referrals: GARCIA MATIAS [Primary Care Provider] - Follow up/PCP as directed Additional Instructions: May use ibuprofen 600 mg orally 3 times a day with food for the next 5 days. Use your antibiotic ointment and [place] pain medicine as prescribed. On 10/17/2023, call an rod piler to make arrangements for follow-up appointment in the next 3 to 5 days. Prescriptions: Hydrocodone/APAP 5/325 [[place] 5/325 mg] 1 each PO Q12H PRN PRN #6 tablet MDD 2 PRN Reason: Pain Erythromycin Base 3.5 gm [Erythromycin 3.5 GM OPHTH.] 3.5 gm OP QID #1 unit
[2023-10-14 23:05] VITALS: RESP 14; TEMP 97.8
[2023-10-14] MEDS ORDERED: TETRACAINE 0.5% STERI-UNIT SOL OP ONE (23:37)
[2023-10-14] MEDS ORDERED: Erythromycin 1 GM ONE (23:37)
[2023-10-14] MEDS: Erythromycin 1 GM OP STA (23:39)
[2023-10-14] MEDS: TETRAHYDRALAZINE 0.05% Drops OP ONE (23:40)
[2023-10-14] MEDS: TETRACAINE 0.5% STERI-UNIT SOL OP STA (23:41)
[2023-10-14] MEDS ORDERED: NORCO 5/325 MG ONE (23:51)
[2023-10-14] MEDS: NORCO 5/325 MG PO ONE ×2 (23:55)
[2023-10-15 00:13] VITALS: BP 125/80; PULSE 81; O2SAT 96
== END 2023-10-15 00:13 | disposition home or self-care (01) ==
LOC: ED 22:52
DX: S05.01XA Injury of conjunctiva and corneal abrasion without foreign body, right eye, initial encounter (principal); H57.11 Ocular pain, right eye
CPT/HCPCS: 99282; A9270-GY

== ENCOUNTER 2023-10-16 11:08 | Emergency (ER) | payer MEDICAID ==
[2023-10-16] MEDS ORDERED: TETRACAINE 0.5% STERI-UNIT SOL OP ONE (12:19)
[2023-10-16] MEDS ORDERED: Fluor-I-Strip/Ful-Flo OP ONE (12:19)
[2023-10-16] MEDS ORDERED: Eye-Stream Solution ONE (12:19)
[2023-10-16] MEDS: TETRACAINE 0.5% STERI-UNIT SOL OP STA (12:42)
[2023-10-16 12:43] VITALS: BP 130/86; PULSE 64; RESP 18; TEMP 97.6; O2SAT 97
[2023-10-16] MEDS ORDERED: NORCO 5/325 MG ONE (12:48)
[2023-10-16] MEDS ORDERED: DELTASONE 20 MG ONE (12:49)
[2023-10-16] MEDS: NORCO 5/325 MG PO ONE (12:50)
[2023-10-16] MEDS: DELTASONE 20 MG PO ONE (12:50)
--- NOTE | 2023-10-16 12:54 | ERPHSYRPT ---
- History of Present Illness Time Seen by Provider: 10/16/23 12:20 Source: patient Exam Limitations: no limitations Patient Subjective Stated Complaint: Eye pain-foreign body to right eye Triage Nursing Assessment: Patient ambulated back to ED and transferred self to bed. Patient A+O x3. Patient's skin pink, warm and dry. Patient was seen last tuesday for a foreign body to right eye. Patient was prescribed pain meds and atb during last visit. Right eye noted to be red and swollen. Foreign body noted in right eye. Patient complains of pain 10/10 to right eye. Physician History: This is a 37-year-old white male patient who was brought to the emergency department by a family member because of persistent pain in the right eye. I evaluated this patient approximately 48 hours ago and diagnosed him with a right corneal abrasion. On my examination, I did not see a retained foreign body present. His complaint of pain was at the 12 o'clock position which is where I could see an abrasion above his eye risks at the 12 o'clock position. We prescribed him [place] 5/325 and erythromycin ophthalmologic ointment. His pain has not improved. His called today and provided us with the information of his persistent eye pain. She is convinced there is a metallic foreign body at the 8 o'clock position. Patient was working with a wooden panel and a nail kicked up and hit him in the right eye 3 days ago. Patient did not come in on the day of his injury but the next day. He has not seen an repair supervisor and was planning to do so tomorrow, 10/17/2023. Timing/Duration: day(s) (3) Location: right eye Severity: mild Apparent Injury: yes Associated Symptoms: pain, burning, sensitivity to light, redness, foreign body sensation Visual Assistive Devices: None Allergies/Adverse Reactions: No Known Drug Allergies Allergy (Verified 10/16/23 12:15) Hx Tetanus, Diphtheria Vaccination/Date Given: No Hx Influenza Vaccination/Date Given: No Hx Pneumococcal Vaccination/Date Given: No Travel Risk - International Travel Have you traveled outside of the country in past 3 weeks: No - Emerging Infectious Disease Are you exhibiting symptoms associated with any current EIDs: No - Review of Systems Constitutional: No Symptoms Eyes: Eye Pain (Right eye pain), Eye Redness (Right eye redness), Tearing, Foreign Body Sensation Ears, Nose, & Throat: No Symptoms Respiratory: No Symptoms Cardiac: No Symptoms Abdominal/Gastrointestinal: Constipation Genitourinary Symptoms: No Symptoms Musculoskeletal: No Symptoms Skin: No Symptoms Neurological: No Symptoms Psychological: No Symptoms Endocrine: No Symptoms Hematologic/Lymphatic: No Symptoms Immunological/Allergic: No Symptoms All Other Systems: Reviewed and Negative - Past Medical History Pertinent Past Medical History: Yes Neurological History: No Pertinent History ENT History: No Pertinent History Cardiac History: No Pertinent History Respiratory History: No Pertinent History Endocrine Medical History: No Pertinent History Musculoskeletal History: No Pertinent History GI Medical History: No Pertinent History History: No Pertinent History Psycho-Social History: No Pertinent History Male Reproductive Disorders: No Pertinent History Other Medical History: left eye reconstructive surgery - Past Surgical History Past Surgical History: Yes Gastrointestinal: Appendectomy, Other - Social History Smoking Status: Current every day smoker How long have you smoked: 7yrs Exposure to second hand smoke: No Drug Use: none Patient Lives Alone: No - Nursing Vital Signs Nursing Vital Signs: Initial Vital Signs Temperature 97.6 F 10/16/23 12:18 Pulse Rate 64 10/16/23 12:18 Respiratory Rate 18 10/16/23 12:18 Blood Pressure 130/86 10/16/23 12:18 O2 Sat by Pulse Oximetry 97 10/16/23 12:18 Pain Scale Pain Intensity 10 - Physical Exam General Appearance: no apparent distress, alert, anxiety Eye Exam: right eye: foreign body (8 o'clock position), left eye: normal inspection, bilateral eye: PERRL, EOMI Ears, Nose, Throat Exam: normal ENT inspection, moist mucous membranes Neck Exam: normal inspection, non-tender, supple Respiratory Exam: airway intact, No chest tenderness, No respiratory distress Gastrointestinal Exam: No tenderness Extremity Exam: normal inspection, normal range of motion, pelvis stable Neurologic: alert, oriented x 3, cooperative, 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 Using an 18-gauge needle I was able to partially remove this debris. I verified removal of significant amount of debris with the nurse as well as the patient. There still is retained, presumed metallic, foreign body debris or rust ring present. The patient was having significant amount of tenderness and therefore we opted to stop the procedure. We applied erythromycin ointment to the site. I provided the patient with [place] 5/325 pain medicine and prednisone 20 mg orally. We will have the patient continue his [place] as prescribed as well as the erythromycin ointment. We called several repair supervisor's offices that are not open at this time. We did call optometry, Dr. Bo Javed. - Course Nursing assessment & vital signs reviewed: Yes Ordered Tests: Medication Summary Discontinued Medications Generic Name Dose Route Start Last Admin Trade Name Freq PRN Reason Stop Dose Admin Hydrocodone Bitart/Acetaminophen 1 tab 10/16/23 12:45 Hydrocodone/Apap 5/325 1 Tab Tablet PO 10/16/23 12:46 STAT ONE Eye Irrigation Solution Confirm 10/16/23 12:19 Sodium/Potassium/Trav[place]/Magnesium 30 Ml Eye Wash Administered 10/16/23 12:20 Dose 30 ml .ROUTE .STK-MED ONE Fluorescein Sodium Confirm 10/16/23 12:19 Fluorescein Sodium 1 Mg/Strip Strip Administered 10/16/23 12:20 Dose 1 mg OP .STK-MED ONE Prednisone 20 mg 10/16/23 12:46 Prednisone 20 Mg Tablet PO 10/16/23 12:47 STAT ONE Tetracaine HCl Confirm 10/16/23 12:19 Tetracaine Hcl/Pf 4 Ml Bottle Administered 10/16/23 12:20 Dose 4 ml OP .STK-MED ONE Tetracaine HCl 4 ml 10/16/23 12:42 10/16/23 12:42 Tetracaine Hcl/Pf 4 Ml Bottle OP 10/16/23 12:43 4 ml STAT STA Administration - Progress Progress: improved, pain not gone completely Progress Note: 10/16/23 12:59 My medical decision making and the assignment of low complexity of this patient's medical issue is based on review of the patient's past medical history, review the patient's medication list, review of patient drug allergy list, history present illness and physical findings on examination. No laboratory radiographic studies are necessary in this patient. 10/16/23 13:[address] Bo Javed in optometry. He phoned back and stated that he sees and deals with this type of issue "all the time". Dr. Javed stated that he will see the patient tomorrow, 10/17/2023 at noon. Counseled pt/family regarding: diagnosis, need for follow-up Medical Desision Making - Diagnostic Testing Diagnostic test were ordered, analyzed, and reviewed by me: No - Risk of complications The pt has a mod risk of morbidity or mortality based on: Need for prescription drug management - Departure Departure Disposition: Home Clinical Impression: Corneal foreign body with residual material Condition: Stable Critical Care Time: No Referrals: GARCIA MATIAS [Primary Care Provider] - Follow up/PCP as directed Additional Instructions: Continue your erythromycin ointment as prescribed. Continue your [place] pain medicine as needed and as prescribed. Follow-up with Dr. Bo Javed, optometry, at his office at noon tomorrow, 10/17/2023. Prescriptions: Prednisone 10 mg [Deltasone 10 mg] 10 mg PO TID #12 tablet
== END 2023-10-16 13:16 | disposition home or self-care (01) ==
LOC: ED 11:08
DX: T15.01XA Foreign body in cornea, right eye, initial encounter (principal); W44.D9XA Other magnetic metal objects entering into or through a natural orifice, initial encounter; W26.8XXA Contact with other sharp object(s), not elsewhere classified, initial encounter; H57.11 Ocular pain, right eye; Z79.52 Long term (current) use of systemic steroids; Z79.891 Long term (current) use of opiate analgesic; Z72.0 Tobacco use
CPT/HCPCS: 65220; 99282; A9270-GY